=== PATIENT | female | born 1965 | race Caucasian/White ===

== ENCOUNTER 2016-09-27 11:14 | Day surgery (SDC) | payer OTHER ==
[~2016-09-27] VITALS: Ht 157.5 cm; Wt 97.0 kg
[~2016-09-27 11:14] MED LIST: 0.9% Sodium Chloride 1,000 ML IV SCH; Sodium Chloride LOK Flush 10 mL Syringe IV PRN; fentaNYL-PF 50 mCg/mL 2 mL Inj IVPUSH PRN
[2016-09-27] MEDS ORDERED: GLUC100016 PO (11:42)
[2016-09-27] MEDS ORDERED: FEXO-15 PO (11:42)
[2016-09-27] MEDS ORDERED: MOME17SP NS (11:42)
[2016-09-27] MEDS ORDERED: RANI150C4 PO (11:42)
[2016-09-27 11:43] VITALS: BP 126/66; PULSE 66; RESP 16; O2SAT 99
[2016-09-27] MEDS ORDERED: fentaNYL-PF 50 mCg/mL 2 mL Inj ONE ×2 (12:16)
[2016-09-27 13:02] VITALS: BP 135/74; PULSE 85; RESP 14; O2SAT 97
[2016-09-27 13:12] VITALS: BP 145/64; PULSE 82; RESP 14; O2SAT 99
[2016-09-27 13:22] VITALS: BP 111/63; PULSE 87; RESP 14; O2SAT 100
--- NOTE | 2016-09-27 21:16 | ENDO ---
[address] [address] ENDOSCOPY PROCEDURE PATIENT: RAMON ROSALES : 1965 MR#: [id number] ADMIT: 09/27/2016 JOB ID: [id number] DATE OF SERVICE: 09/27/2016 PROCEDURE: 1. Esophagogastroduodenoscopy with biopsy. 2. Colonoscopy. PREOPERATIVE DIAGNOSIS(ES): 1. Gastroesophageal reflux disease. 2. Constipation. POSTOPERATIVE DIAGNOSIS(ES): 1. Mild bulbar duodenitis status post biopsy. 2. Mild nonerosive gastritis, status post biopsy. 3. Normal colonoscopy. ANESTHESIA: 1. Fentanyl 200 mcg. 2. Versed 10 mg IV administered. COMPLICATIONS: None. BLOOD LOSS: Minimal. DESCRIPTION OF PROCEDURE: After risks and benefits were explained to the patient, informed consent was obtained. After anesthesia administered, an upper endoscope was inserted into the mouth, intubating to the esophagus, stomach, second portion of duodenum and mucosa carefully examined. After procedure was done, the scope was withdrawn and the procedure terminated. Colonoscope was then inserted from the rectum to the cecum and mucosa carefully examined. Prep of the patient was excellent. After procedure was done, the scope was withdrawn and procedure terminated. FINDINGS: Upon inspection of the esophagus, esophagus was normal without masses, ulcers, or lesions. Z-line located at 35 cm from incisors. Upon entering stomach, there was mild nonerosive gastritis that was seen. No masses, ulcers, or lesions were recognized. Retroflexion was normal. There was mild erythema in the duodenal bulb consistent with bulbar duodenitis. The 1st and 2nd portion were normal. Biopsies were taken at duodenum, antrum, body and distal esophagus. Upon inspection of the anus, no masses, hemorrhoids, ulcers, fissures that were seen throughout the entire examination. There were no polyps, masses, or lesions. Retroflexion was normal. IMPRESSIONS: 1. Overall bulbar duodenitis, status post biopsy. 2. Mild nonerosive gastritis, status post biopsy. 3. Normal colonoscopy. RECOMMENDATION: Await pathology results. Follow up with Shira Hernandez PA-C as an outpatient in GI clinic. Repeat colonoscopy in two years if the patient is average risk for colorectal cancer.
--- NOTE | 2016-09-29 11:00 | PATH ---
SURGICAL PATHOLOGY Attending Physician:Anson Quiroz MD CASE STATUS: Signed Out PATIENT NAME: RAMON ROSALES PID: [id number] : 1965 DATE COLLECTED:09/27/2016 22:21 SPECIMEN: 1: Duodenum, Biopsy 2: Stomach, Antrum, Biopsy 3: Gastric, Biopsy 4: Esophagus, Biopsy CLINICAL HISTORY: 1). DUODENAL BIOPSY 2). ANTRUM BIOPSY 3). GASTRIC BODY 4). DISTAL ESOPHAGUS FINAL DIAGNOSIS: 1.DUODENAL BIOPSY: FRAGMENTS OF NORMAL-APPEARING DUODENUM MUCOSA. Normal delicate mucosal villi present. Negative for significant inflammation, dysplasia and malignancy. 2.GASTRIC ANTRUM BIOPSY: FRAGMENT OF ANTRAL MUCOSA, NEGATIVE FOR SIGNIFICANT INFLAMMATION. Negative for evidence of Helicobacter. Negative for intestinal metaplasia. Negative for dysplasia and malignancy. 3.GASTRIC BODY BIOPSY: FOCAL MINIMAL SUPERFICIAL CHRONIC GASTRITIS INVOLVING FUNDIC MUCOSA. Negative for evidence of Helicobacter. Negative for intestinal metaplasia. Negative for dysplasia and malignancy. 4.DISTAL ESOPHAGUS BIOPSY: SQUAMOUS MUCOSA AND MINIMUM AMOUNT OF GASTRIC CARDIA-TYPE MUCOSA WITH CHRONIC INFLAMMATION, REACTIVE EPITHELIAL CHANGES, AND RARE INTRAEPITHELIAL EOSINOPHILS, ALL CONSISTENT WITH CHANGES OF CHRONIC REFLUX. Negative for specialized metaplasia of Cabrera' s-type esophagus. Negative for dysplasia and malignancy. ICD10 K21.0 GROSS DESCRIPTION: The specimen is received in four formalin filled containers labeled with the patient's name. 1). The specimen is sublabeled "duodenal" and consists of a 0.3 x 0.3 x 0.3 CM portion of tissue which is entirely submitted in cassette 1A. 2). The specimen is sublabeled "antrum" and consists of 2 portions of tissue which aggregate to 0.3 x 0.3 x 0.2 CM. The specimen is entirely submitted in cassette 2A. 3). The specimen is sublabeled "gastric body" and consists of a 0.3 x 0.3 x 0.2 CM portion of tissue which is entirely submitted in cassette 3A. 4). The specimen is sublabeled "distal esophagus" and consists of 2 portions of tissue which aggregate to 0.2 x 0.2 x 0.2 CM to 0.3 x 0.2 x 0.2 CM. All fragments are totally submitted in cassette 4A. 09/27/2016 DAC MICRO DESCRIPTION: See diagnosis. ICD-9 CODES: CPT CODES: 1: 15911 2: 89665 3: 06716 4: 85325 Electronically Signed Out Renan Paulino MD [facility] [address], [place] [address] Technical component performed at [facility], [facility] [address], [place], [address]
== END 2016-09-27 23:59 | disposition home or self-care (01) ==
LOC: END 11:14
PROVIDERS: ATTEND Internal Medicine Gastroenterology
DX: R19.4 Change in bowel habit (principal); R19.5 Other fecal abnormalities; K29.50 Unspecified chronic gastritis without bleeding; K21.9 Gastro-esophageal reflux disease without esophagitis; R10.13 Epigastric pain
CPT/HCPCS: 43239; 45378; 99153; G0500; J2250; J3010